=== PATIENT | male | born 1985 | race Caucasian/White ===

== ENCOUNTER 2024-04-05 16:18 | Outpatient (CLI) | payer BC, SELFPAY ==
--- NOTE | ~2024-04-05 | XR_ITS ---
EXAMINATION: XR chest 2V 04/05/2024 16:30 INDICATION: Chest pain PROCEDURE: 2 view chest COMPARISON: No prior studies for comparison. FINDINGS: The lungs are clear. The cardiomediastinal silhouette is within normal limits. There are no pleural effusions. There is no pneumothorax suspected. IMPRESSION: 1: NO ACUTE CARDIOPULMONARY DISEASE. Reviewed, dictated and finalized at location B.
== END 2024-04-05 16:19 | disposition home or self-care (01) ==
LOC: GOSHIMG 16:21
PROVIDERS: PCP Student in an Organized Health Care Education/Training Program; Visit Provider Student in an Organized Health Care Education/Training Program
DX: R07.1 Chest pain on breathing (principal)
CPT/HCPCS: 71046

== ENCOUNTER 2025-04-25 08:05 | Emergency (ER) | payer BC, SELFPAY ==
--- NOTE | 2025-04-25 08:14 | ED.WOUNDLAC ---
HPI - Wound/Laceration General Chief Complaint: Wound/Laceration Stated Complaint: Head pain/Cut chin Time Seen by Provider: 04/25/25 08:14 Source: patient Mode of arrival: ambulatory Limitations: no limitations History of Present Illness HPI narrative: 39-year-old male presents with laceration to chin. Patient playing basketball this morning around 6:00 a.m.. Collided with an other player and was hit with an other player's head to his chin. Patient denies hitting head. No LOC. Does report that he has a headache following injury. alert and talkative. No N/V. Bleeding controlled on arrival. All systems reviewed and negative except as noted above. Related Data Home Medications ?Medication ?Instructions ?Recorded ?Confirmed ?Last Taken ?Type No Home Medications 04/25/25 04/25/25 Unknown History Allergies Allergy/AdvReac Type Severity Reaction Status Date / Time No Known Allergies Allergy Verified 04/25/25 08:16 PMFSH Comments At time of signature, agree with nursing past medical, surgical, social and family history. There is no relevant family history pertinent to the presenting complaint. Exam Narrative: GENERAL: This is a well-nourished, well-developed patient, in no apparent distress. HEAD: normocephalic, atraumatic. EYES: PERRL. Sclera clear/white. Vision is grossly intact. EARS: External ears normal NOSE: External nose normal NECK: Neck supple, non-tender without lymphadenopathy, masses or thyromegaly. CARDIOVASCULAR: Regular rate and rhythm without murmurs, gallops, or rubs. RESPIRATORY: Clear to auscultation. Breath sounds equal bilaterally. No wheezes, rales, or rhonchi. SKIN: warm, Dry, intact with no suspicious lesions or rash, good texture and turgor. 1 cm laceration to chin. NEURO: awake, alert, and oriented to person, place and time. There were no obvious focal neurologic abnormalities. EXTREMITIES: No joint tenderness, effusion, or edema noted. HENMT: Face images:  1. 1 cm laceration. Bleeding controlled. Course Course Level of Care: Express Care Visit Vital Signs Vital signs: Vital Signs Temperature 36.6 C 04/25/25 08:16 Pulse Rate 63 04/25/25 08:16 Respiratory Rate 16 04/25/25 08:16 Blood Pressure 120/77 04/25/25 08:16 Pulse Oximetry 100 04/25/25 08:16 Temperature 36.6 C 04/25/25 08:16 Pulse Rate 63 04/25/25 08:16 Respiratory Rate 16 04/25/25 08:16 Blood Pressure 120/77 04/25/25 08:16 Pulse Oximetry 100 04/25/25 08:16 Reviewed Procedures Laceration Laceration 1: Date: 04/25/25 Time: 08:30 Site: face (chin) Size (cm): 1 Description: linear Depth: simple, single layer Local Anesthetic: lidocaine 1% Amount of anesthesia used (mL): 3 Pre-repair: wound explored and irrigated ====== Skin Level ====== Skin layer closed with: nylon Size (cm): 5-0 Number of sutures: 4 Technique: simple, interrupted ====== Subcutaneous Layer ====== ====== Muscle Layer ====== ====== Tendon Layer ====== MDM - Wound/Laceration MDM Narrative Medical decision making narrative: Chin laceration repaired with suture. Patient tolerated well. Wound edges approximate. Recommend follow-up in 7 days for suture removal. Differential Diagnosis Differential diagnosis: Likely laceration, abrasion and avulsion of skin Discharge Plan Discharge Clinical Impression: Chin laceration Qualifiers: Encounter type: initial encounter Qualified Code(s): S01.81XA - Laceration without foreign body of other part of head, initial encounter Patient Disposition: Home Condition: Stable Instructions: Laceration (ED) Additional Instructions: Keep wound clean and dry. Wash with mild soap and water. Do no pull or scrub at sutures. Avoid shaving until sutures have been removed. Apply Aquaphor or vaseline to sutures. Follow up in 7 days for suture removal. Patient Language: [place] Citizen Prescriptions: No Action No Home Medications Follow-up/Referrals: PHYSICIAN,RESIN COATER [Primary Care Provider, Internal Medicine] Time of Disposition: 08:51
[2025-04-25 08:16] VITALS: BP 120/77; PULSE 63; RESP 16; TEMP 36.6; O2SAT 100
[2025-04-25] MEDS: LIDOCAINE 1% LOCAL INJ 2 ML AMPUL INFILTRATE (08:29)
[2025-04-25] MEDS: TETANUS,DIPHTHERIA,AC PERTUSSIS ADULT (0.5 ML) BOOSTRIX IM (08:30)
== END 2025-04-25 08:55 | disposition home or self-care (01) ==
PROVIDERS: Emergency Provider Nurse Practitioner Family
DX: S01.81XA Laceration without foreign body of other part of head, initial encounter (principal); W51.XXXA Accidental striking against or bumped into by another person, initial encounter; Y93.67 Activity, basketball; Z23 Encounter for immunization
CPT/HCPCS: 12011; 90471; 90715; 99202; G0463; J2003

== ENCOUNTER 2025-05-07 14:36 | Emergency (ER) | payer BC, SELFPAY ==
[2025-05-07 14:43] VITALS: BP 127/72; PULSE 60; RESP 16; TEMP 36.6; O2SAT 97
--- NOTE | 2025-05-07 15:12 | ED.GENADULT ---
HPI - General Adult General Chief complaint: Wound/Laceration Stated complaint: Stitches Removal Time Seen by Provider: 05/07/25 15:08 Source: patient, RN notes reviewed and old records reviewed Mode of arrival: ambulatory Limitations: no limitations History of Present Illness HPI narrative: 39 year old male presents to express care for removal of 4 stitches from the middle aspect of his chin. Patient reports that on the 25 of April [facility] [employer] and his chin came into contact with another players head and caused laceration that was repaired at clinic. Patient has well healed wound to chin with no drainage or redness, edges well approximated. Patient reports MD complaint: her for stitich removal Onset (ago): week(s) (04/25/2025) Location: face (chin) Severity: mild Treatments prior to arrival: other (Aquaphor) Related Data Home Medications ?Medication ?Instructions ?Recorded ?Confirmed ?Last Taken ?Type No Home Medications 04/25/25 05/07/25 Unknown History Allergies Allergy/AdvReac Type Severity Reaction Status Date / Time No Known Allergies Allergy Verified 05/07/25 14:51 Review of Systems Review of Systems: CONSTITUTIONAL: Denies fever, chills, or sweats. CARDIOVASCULAR: Denies chest pain, palpitations, or edema. RESPIRATORY: Denies cough or dyspnea. SKIN: Reports healed laceration to the mid aspect of his chin here today for suture removal MUSCULOSKELETAL: Denies musculoskeletal pain NEUROLOGIC: Denies numbness, or weakness. All systems reviewed & are unremarkable except as noted in HPI and below PMFSH Social History Social History (Updated 05/08/25 @ 20:40 by Charis Dumont APRN) Alcohol intake: current Alcohol use details: social Substance use type: does not use Living arrangements: with family Gender identity (if verbalized by the patient): Male Comments At time of signature, agree with nursing past medical, surgical, social and family history. There is no relevant family history pertinent to the presenting complaint Exam Narrative: GENERAL: Well-appearing, well-nourished, and in no acute distress. HEAD: Normocephalic, atraumatic. NECK: Supple.no lymphadenopathy CHEST: Clear to auscultation. No respiratory distress.SAO2 97% on room air HEART: Regular rate and rhythm. No murmur heard. Normal peripheral pulses. EXTREMITIES: Normal range of motion. No edema. SKIN: Warm, dry, no rash. Wound to mid chin region is well healed with no redness or drainage, here for suture removal NEURO: No focal deficits. Alert and oriented x3. Course Course Level of Care: Express Care Visit Vital Signs Vital signs: Vital Signs Temperature 36.6 C 05/07/25 14:43 Pulse Rate 60 05/07/25 14:43 Respiratory Rate 16 05/07/25 14:43 Blood Pressure 127/72 05/07/25 14:43 Pulse Oximetry 97 05/07/25 14:43 Temperature 36.6 C 05/07/25 14:43 Pulse Rate 60 05/07/25 14:43 Respiratory Rate 16 05/07/25 14:43 Blood Pressure 127/72 05/07/25 14:43 Pulse Oximetry 97 05/07/25 14:43 reviewed Procedures Other Procedure Procedure 1: Other Procedure: 1511 Using sterile instrument set 4 sutures removed from chin, wound well healed with edges well approximated, no redness or any drainage noted.Patient tolerated suture removal with no discomfort voiced. Medical Decision Making Differential Diagnosis Differential Diagnosis: wound assessment. removal of sutures, Medical Records Medical records reviewed: Yes I reviewed the external patient's medical records. Vital Signs Vital Signs: Vital Signs Temperature 36.6 C 05/07/25 14:43 Pulse Rate 60 05/07/25 14:43 Respiratory Rate 16 05/07/25 14:43 Blood Pressure 127/72 05/07/25 14:43 Pulse Oximetry 97 05/07/25 14:43 Temperature 36.6 C 05/07/25 14:43 Pulse Rate 60 05/07/25 14:43 Respiratory Rate 16 05/07/25 14:43 Blood Pressure 127/72 05/07/25 14:43 Pulse Oximetry 97 05/07/25 14:43 reviewed Critical Care Time Critical Care Time Critical Care Time: No Discharge Plan Discharge Clinical Impression: Encounter for removal of sutures Patient Disposition: Home Condition: Stable Instructions: Laceration (ED) Additional Instructions: cleanse area that sutures were removed from with liquid Dial soap daily apply triple antibiotic or Aquaphor ointment to site coordinator for any fevers or any signs of infection If your symptoms persist, change or worsen significantly before you can contact your personal physician then please, without delay, go to the emergency department for further evaluation. Follow-up with PCP in 7-10 days or sooner if needed Follow up with PCP soon in regards to your blood pressure which is elevated above threshold for referral. Blood pressure above 120/80 may indicate pre-hypertension. minimal elevation 127/72 Patient Language: [place] Prescriptions: No Action No Home Medications Follow-up/Referrals: PHYSICIAN,INJECTION MAINTENANCE TECHNICIAN [Primary Care Provider, Internal Medicine] Time of Disposition: 15:18 Quality Radha Coma Scale Eyes: Open Verbal: Oriented and Alert Motor: Follows Commands [place] Coma Total Score: 15
== END 2025-05-07 15:21 | disposition home or self-care (01) ==
PROVIDERS: Emergency Provider Registered Nurse
DX: S01.81XD Laceration without foreign body of other part of head, subsequent encounter (principal); W51.XXXD Accidental striking against or bumped into by another person, subsequent encounter
CPT/HCPCS: 99211; G0463